=== PATIENT | male | born 1990 | race Caucasian/White ===

== ENCOUNTER 2016-11-14 18:43 | Emergency (ER) | payer MEDICAID ==
[~2016-11-14] VITALS: Ht 182.9 cm; Wt 90.4 kg
[2016-11-14 19:02] VITALS: BP 142/89
[2016-11-14] MEDS ORDERED: DEXAMETHASONE 4 MG TABLET PO STA (19:19)
[2016-11-14] MEDS ORDERED: DEXAMETHASONE 4 MG TABLET ONE (19:22)
== END 2016-11-14 19:52 | disposition home or self-care (01) ==
LOC: ED 19:45
DX: J00 Acute nasopharyngitis [common cold] (principal); H66.002 Acute suppurative otitis media without spontaneous rupture of ear drum, left ear; F17.200 Nicotine dependence, unspecified, uncomplicated
CPT/HCPCS: 71020; 99284